=== PATIENT | female | born 1950 | race Asian ===

== ENCOUNTER 2022-04-28 12:51 | Emergency (ER) | payer OTHER ==
[~2022-04-28] VITALS: Ht 152.4 cm; Wt 52.3 kg
[~2022-04-28 12:51] MED LIST: INHALER IH
[2022-04-28 14:00] VITALS: BP 122/69
[2022-04-28] MEDS ORDERED: PredniSONE 20 MG TABLET PO ONE (14:00)
[2022-04-28] MEDS ORDERED: NYST30CR9 TP (14:09)
[2022-04-28] MEDS ORDERED: PRED-554 PO (14:10)
== END 2022-04-28 14:40 | disposition home or self-care (01) ==
LOC: EMS 13:31
DX: B37.2 Candidiasis of skin and nail (principal); L50.9 Urticaria, unspecified
CPT/HCPCS: 99283; J7512

== ENCOUNTER 2022-05-07 15:13 | Emergency (ER) | payer OTHER ==
[~2022-05-07] VITALS: Ht 147.3 cm; Wt 45.5 kg
[~2022-05-07 15:13] MED LIST changes: +NYST30CR9 TP; +PRED-554 PO
[2022-05-07] MEDS ORDERED: DiphenhydrAMINE HCL 50 MG/ML VIAL IM ONE (18:30)
[2022-05-07] MEDS ORDERED: PredniSONE 20 MG TABLET PO ONE (18:30)
[2022-05-07] MEDS ORDERED: ACETAMINOPHEN 500 MG TABLET PO ONE (18:30)
[2022-05-07 18:55] LABS: BASOPHILS % (AUTO) 0.3 % (0.0-2.0); EOSINOPHILS % (AUTO) 2.8 % (1.0-6.0); HEMOGLOBIN 13.2 g/dL (12.0-16.0); LYMPHOCYTES # (AUTO) 0.9 K/uL (1.0-4.8); LYMPHOCYTES % (AUTO) 13.3 % (22.0-44.0); MEAN CORPUSCULAR HEMOGLOBIN 28.3 pg (26.0-34.0); MEAN CORPUSCULAR HGB CONC 32.9 G/dL (31.0-37.0); MEAN CORPUSCULAR VOLUME 86 fL (80-100); MONOCYTES # (AUTO) 0.7 K/uL (0.1-1.0); MONOCYTES % (AUTO) 9.5 % (2.0-9.0); NEUTROPHILS # (AUTO) 5.2 K/uL (1.8-7.7); NEUTROPHILS % (AUTO) 74.1 % (40.0-70.0); PLATELET COUNT (AUTO) 218 K/uL (150-450); RED BLOOD CELL COUNT(AUTO) 4.66 MIL/uL (4.00-5.20); RED CELL DISTRIBUTION WIDTH 13.7 % (11.5-14.5)
[2022-05-07 19:02] LABS: ANION GAP 10 mmol/L (8-16); CALCIUM, TOTAL 8.8 mg/dL (8.8-10.5); CARBON DIOXIDE 29 mmol/L (22-29); CHLORIDE 101 mmol/L (98-107); CREATININE 0.65 mg/dL (0.60-1.30); GLOMERULAR FILTR. RATE CALC > 60 mL/min (>60); GLUCOSE,RANDOM 121 mg/dL (70-110); POTASSIUM 3.7 mmol/L (3.5-5.1); SODIUM SERUM 140 mmol/L (136-145); UREA NITROGEN, BLOOD 7 mg/dL (7-18)
[2022-05-07 19:08] LABS: ALANINE AMINOTRANSFERASE 23 U/L (12-78); ALBUMIN 3.8 g/dL (3.4-5.0); ALKALINE PHOSPHATASE 84 U/L (46-116); ASPARTATE AMINOTRANSFERASE 26 U/L (15-37); BILIRUBIN,TOTAL 0.6 mg/dL (0.1-1.0); TOTAL PROTEIN, SERUM 7.6 g/dL (6.4-8.2)
[2022-05-07 19:22] VITALS: BP 148/68
[2022-05-07] MEDS ORDERED: CLOB15CR10 TP (19:31)
[2022-05-07] MEDS ORDERED: DIPH25CA53 PO (19:31)
[2022-05-07] MEDS ORDERED: ACET-66 PO (19:31)
[2022-05-07] MEDS ORDERED: PRED-554 PO (19:31)
== END 2022-05-07 19:57 | disposition home or self-care (01) ==
LOC: EMS 15:26
DX: L23.9 Allergic contact dermatitis, unspecified cause (principal); R42 Dizziness and giddiness; J45.909 Unspecified asthma, uncomplicated
CPT/HCPCS: 99284; 80053; 84484; 85025; 36415; 93005; 96372; J1200; J7512

== ENCOUNTER 2022-06-07 11:58 | Emergency (ER) | payer OTHER ==
[~2022-06-07] VITALS: Ht 152.4 cm; Wt 52.3 kg
[~2022-06-07 11:58] MED LIST changes: +ACET-66 PO; +CLOB15CR10 TP; +DIPH25CA53 PO
[2022-06-07] MEDS ORDERED: DIPH25CA85 PO (14:20)
[2022-06-07 14:39] VITALS: BP 137/64
== END 2022-06-07 14:58 | disposition home or self-care (01) ==
LOC: EMS 12:02
DX: L29.9 Pruritus, unspecified (principal); R21 Rash and other nonspecific skin eruption; J45.909 Unspecified asthma, uncomplicated
CPT/HCPCS: 99281; Z7502

== ENCOUNTER 2022-08-01 11:56 | Emergency (ER) | payer OTHER ==
[~2022-08-01] VITALS: Ht 152.4 cm; Wt 42.7 kg
[~2022-08-01 11:56] MED LIST changes: +DIPH25CA85 PO
[2022-08-01 13:04] LABS: APPEARANCE,URINE CLEAR (CLEAR); BILIRUBIN,URINE NEGATIVE (NEGATIVE); GLUCOSE, URINE (UA) NEGATIVE (NEGATIVE); KETONES,URINE NEGATIVE (NEGATIVE); LEUKOCYTE ESTERASE ,URINE NEGATIVE (NEGATIVE); NITRATE,URINE NEGATIVE (NEGATIVE); OCCULT BLOOD,URINE NEGATIVE (NEGATIVE); PH,URINE 5.5 (5.0-8.0); PROTEIN,URINE TRACE mg/dL (NEGATIVE); UROBILINOGEN,URINE <=1.0 mg/dL (<=1.0)
[2022-08-01 13:14] LABS: BACTERIA,URINE None Seen /HPF (None Seen); RBC,URINE None Seen /HPF (0-2); SQUAMOUS EPITHELIAL CELL,UR Moderate /LPF (None Seen); WBC,URINE 0-2 /HPF (0-5)
[2022-08-01 13:23] LABS: BASOPHILS % (AUTO) 0.6 % (0.0-2.0); EOSINOPHILS % (AUTO) 8.9 % (1.0-6.0); HEMATOCRIT 39.5 % (36-46); HEMOGLOBIN 12.7 g/dL (12.0-16.0); LYMPHOCYTES # (AUTO) 1.5 K/uL (1.0-4.8); LYMPHOCYTES % (AUTO) 30.5 % (22.0-44.0); MEAN CORPUSCULAR HEMOGLOBIN 28.2 pg (26.0-34.0); MEAN CORPUSCULAR HGB CONC 32.1 G/dL (31.0-37.0); MEAN CORPUSCULAR VOLUME 88 fL (80-100); MONOCYTES # (AUTO) 0.4 K/uL (0.1-1.0); MONOCYTES % (AUTO) 8.6 % (2.0-9.0); NEUTROPHILS # (AUTO) 2.5 K/uL (1.8-7.7); NEUTROPHILS % (AUTO) 51.4 % (40.0-70.0); PLATELET COUNT (AUTO) 182 K/uL (150-450); RED BLOOD CELL COUNT(AUTO) 4.49 MIL/uL (4.00-5.20)
[2022-08-01 13:35] LABS: ANION GAP 4 mmol/L (8-16); CALCIUM, TOTAL 9.3 mg/dL (8.8-10.5); CARBON DIOXIDE 32 mmol/L (22-29); CHLORIDE 102 mmol/L (98-107); CREATININE 0.71 mg/dL (0.60-1.30); GLUCOSE,RANDOM 101 mg/dL (70-110); SODIUM SERUM 138 mmol/L (136-145); UREA NITROGEN, BLOOD 10 mg/dL (7-18)
[2022-08-01 13:37] LABS: GLOMERULAR FILTR. RATE CALC > 60 mL/min (>60)
[2022-08-01 13:42] LABS: ALANINE AMINOTRANSFERASE 14 U/L (12-78); ALBUMIN 3.8 g/dL (3.4-5.0); ALKALINE PHOSPHATASE 85 U/L (46-116); ASPARTATE AMINOTRANSFERASE 20 U/L (15-37); BILIRUBIN,TOTAL 0.4 mg/dL (0.1-1.0); TOTAL PROTEIN, SERUM 7.6 g/dL (6.4-8.2)
[2022-08-01 14:47] VITALS: BP 129/71
[2022-08-01] MEDS ORDERED: DIPH25 PO (15:27)
== END 2022-08-01 15:33 | disposition home or self-care (01) ==
LOC: EMS 12:10
DX: L23.9 Allergic contact dermatitis, unspecified cause (principal); Z76.0 Encounter for issue of repeat prescription
CPT/HCPCS: 80053; 81001; 85025; 99283

== ENCOUNTER 2022-09-21 10:56 | Emergency (ER) | payer OTHER ==
[~2022-09-21] VITALS: Ht 152.4 cm; Wt 45.5 kg
[~2022-09-21 10:56] MED LIST changes: +DIPH25 PO
[2022-09-21] MEDS ORDERED: DiphenhydrAMINE/ZINC ACET 30 GM CREAM TP ONE (13:00)
[2022-09-21 13:23] LABS: COVID AG,FIA SOURCE NASAL SWAB
[2022-09-21 13:48] LABS: BASOPHILS % (AUTO) 1.2 % (0.0-2.0); EOSINOPHILS % (AUTO) 10.3 % (1.0-6.0); HEMATOCRIT 37.6 % (36-46); HEMOGLOBIN 12.1 g/dL (12.0-16.0); LYMPHOCYTES # (AUTO) 1.5 K/uL (1.0-4.8); LYMPHOCYTES % (AUTO) 37.1 % (22.0-44.0); MEAN CORPUSCULAR HEMOGLOBIN 27.9 pg (26.0-34.0); MEAN CORPUSCULAR HGB CONC 32.2 G/dL (31.0-37.0); MEAN CORPUSCULAR VOLUME 87 fL (80-100); MONOCYTES # (AUTO) 0.4 K/uL (0.1-1.0); MONOCYTES % (AUTO) 9.9 % (2.0-9.0); NEUTROPHILS # (AUTO) 1.7 K/uL (1.8-7.7); NEUTROPHILS % (AUTO) 41.5 % (40.0-70.0); PLATELET COUNT (AUTO) 179 K/uL (150-450); RED BLOOD CELL COUNT(AUTO) 4.34 MIL/uL (4.00-5.20); RED CELL DISTRIBUTION WIDTH 13.3 % (11.5-14.5)
[2022-09-21 14:00] LABS: ALANINE AMINOTRANSFERASE 16 U/L (12-78); ALBUMIN 3.5 g/dL (3.4-5.0); ALKALINE PHOSPHATASE 72 U/L (46-116); ANION GAP 4 mmol/L (8-16); ASPARTATE AMINOTRANSFERASE 18 U/L (15-37); BILIRUBIN,TOTAL 0.3 mg/dL (0.1-1.0); CALCIUM, TOTAL 8.9 mg/dL (8.8-10.5); CARBON DIOXIDE 32 mmol/L (22-29); CHLORIDE 109 mmol/L (98-107); CREATININE 0.51 mg/dL (0.60-1.30); GLUCOSE,RANDOM 111 mg/dL (70-110); SODIUM SERUM 145 mmol/L (136-145); TOTAL PROTEIN, SERUM 6.9 g/dL (6.4-8.2); UREA NITROGEN, BLOOD 6 mg/dL (7-18)
[2022-09-21 14:11] LABS: GLOMERULAR FILTR. RATE CALC > 60 mL/min (>60); POTASSIUM 2.8 mmol/L (3.5-5.1)
[2022-09-21] MEDS ORDERED: POTASSIUM CHLORIDE 10% 40 MEQ/30 ML LIQUID UDCUP PO ONE ×2 (14:15→16:30)
[2022-09-21 14:27] LABS: INFLUENZA TYPE A NEGATIVE FOR TYPE A (NEGATIVE); INFLUENZA TYPE B NEGATIVE FOR TYPE B (NEGATIVE)
[2022-09-21 18:22] VITALS: BP 142/67
== END 2022-09-21 18:31 | disposition home or self-care (01) ==
LOC: EMS 11:01
DX: R09.81 Nasal congestion (principal); E87.6 Hypokalemia; L29.9 Pruritus, unspecified; Z20.822 Contact with and (suspected) exposure to COVID-19
CPT/HCPCS: 71046; 80053; 83735; 84132; 84484; 85025; 87804; 93005; 99285; 36415-L1; 36415-TC